=== PATIENT | female | born 1995 | race Two or more races ===

== ENCOUNTER 2024-09-19 19:28 | Emergency (ER) | payer MEDICAID, SELFPAY ==
[2024-09-19 19:30] VITALS: BMI 36.2
[2024-09-19 19:47] VITALS: BP 130/83; PULSE 98; RESP 18; TEMP 37; O2SAT 98
--- NOTE | 2024-09-19 19:49 | PD.EDRME ---
Rapid Medical Screening Exam E Arrival date/time: 09/19/24 19:28 29 yo f present to ED for c/o of right lower leg injury today I have greeted and performed a focused initial assessment of this patient. A comprehensive ED assessment and evaluation of the patient, analysis of all test results, and completion of the medical decision making process will be conducted by additional ED providers. Chief Complaint: Extremity Injury, Lower Vital signs: Vital Signs Temperature 98.6 F 09/19/24 19:47 Pulse Rate 98 09/19/24 19:47 Respiratory Rate 18 09/19/24 19:47 Blood Pressure 130/83 09/19/24 19:47 Pulse Oximetry (%) 98 09/19/24 19:47 Oxygen Delivery Method Room Air 09/19/24 19:47
--- NOTE | 2024-09-19 19:50 | XR_ITS ---
Examination: Tibia-Fibula, right , 2 views Technique: Tibia-fibula AP lateral 2 views Date and time of exam: September 19, 2024 [id number] hrs. Indications: Injury to the leg today, lower leg pain. Findings: No acute fracture No dislocation No foreign body Impression: No acute fracture
--- NOTE | 2024-09-19 19:50 | XR_ITS ---
EXAMINATION: Ankle, right 3 views . Technique: Ankle AP, oblique, lateral 3 views Date and time of exam: September 19, [id number] hrs. Indications: Injury to the ankle today, ankle pain. Findings: No acute fracture No dislocation No foreign body Impression: No acute fracture
--- NOTE | 2024-09-19 19:50 | XR_ITS ---
Examination: Foot, right, 3 views Technique: AP, oblique, lateral views foot, 3 views Date and time of exam: September 19, 2024 2308 hrs. Indications: Injury to the foot today, foot pain Findings: No acute fracture No dislocation No foreign body Impression: No acute fracture
--- NOTE | 2024-09-19 21:04 | EDNOTE_ITS ---
<Statement entered by Kylee Booker MD - 09/20/24 03:22> As co-signing physician, I was present and available for consult prn. I concur with the plan and care as documented by the midlevel provider. Lower Extremity Injury RME/HPI General Chief Complaint: Extremity Injury, Lower Stated Complaint: RIGHT LOWER LEG PAIN S/P FALL Time Seen by Provider: 09/19/24 21:04 Arrival date/time: 09/19/24 19:28 29 year old female present to emergency room with c/o of lower leg injury today. patient report walking down steps when accidentally slipped and fell down a few steps. LOCATION: leg pain SEVERITY: Symptoms are described as being severe with limitations on activities of daily living QUALITY: Symptoms are described as being dull or achy CONTEXT: injury leg while walking down steps DURATION/TIMING: The symptoms started approximately 1 day ago and have been constant this then. ASSOCIATED SYMPTOMS: The patient is unable to identify any other associated symptoms. MODIFYING FACTORS: The patient is unable to identify any alleviating or aggravating symptoms. PERTINENT ROS: no fevers, no headache, no neck or chest pain, no unexplained nausea or vomiting, no focal neurological deficits REVIEW OF SYSTEMS: See History of Present Illness - with the exception of those mentioned in the history of present illness, all other systems reviewed and reported as negative GENERAL: In general the patient is awake, interactive, in an emergency department gurney. HEAD/EYES/EARS/NOSE/THROAT: normo-cephalic, atraumatic, mucus membranes are moist, anicteric, palpebral conjunctiva is pink, trachea is midline. CARDIOVASCULAR: regular rate and regular rhythm, no murmurs, heart sounds are not distant, strong pulses in all four extremities that are equal and symmetric bilateral upper and lower extremities, normal capillary refill. CHEST/PULMONARY: normal chest rise and fall, good air movement, clear to auscultation bilaterally, normal inspiratory to expiratory ratios without evidence of respiratory distress. NECK: No midline/Paraspinal tenderness, no step off ROM/Strenght intact No Kernig and bruzinski sign. No trauma ABDOMEN: soft, not tender, no masses appreciated BACK: normal range of motion without pain. NEUROLOGICAL: cranio-facial features are symmetric, moves all four extremities equally without obvious limitations or weakness. EXTREMITY: right lower leg, ankle and foot tenderness, no open wounds no tenderness to palpation over the long bones or large joints of the bilateral upper extremities, no joint swelling, no unilateral leg swelling and no peripheral edema. SKIN: warm, dry, well-perfused, no jaundice, no rash, no telangiectasias or petechia. PSYCH: calm, cooperative, no evidence of psychosis or agitation RME / HPI RME / HPI Narrative: 09/19/24 19:28 29 yo f present to ED for c/o of right lower leg injury today I have greeted and performed a focused initial assessment of this patient. A comprehensive ED assessment and evaluation of the patient, analysis of all test results, and completion of the medical decision making process will be conducted by additional ED providers. Related Data Home Medications ?Medication ?Instructions ?Recorded ?Confirmed vit no.95-ferrous 1 tab PO QDAY 12/23/19 02/21/20 fumarate 28 mg-folic acid 800 mcg tablet () Previous Rx's ?Medication ?Instructions ?Recorded ibuprofen 600 mg tablet 600 mg PO Q6H PRN pain #90 tabs 02/21/20 acetaminophen 300 mg-codeine 30 mg 1 tab PO Q6H PRN pain #15 tabs 02/26/22 tablet ketorolac 10 mg tablet 10 mg PO Q8H PRN pain #15 tabs 02/26/22 ondansetron 4 mg disintegrating 4 mg PO Q4H PRN nausea and 02/26/22 tablet vomiting #10 tabs tamsulosin 0.4 mg capsule (Flomax) 0.4 mg PO QDAY #7 caps 02/26/22 omeprazole 40 mg capsule,delayed 40 mg PO QDAY #30 caps 03/31/23 release ibuprofen 800 mg tablet 800 mg PO TID PRN pain #30 tabs 08/14/23 loperamide 2 mg capsule (Imodium 2 mg PO Q6H PRN loose stool #14 08/14/23 A-D) caps ondansetron 4 mg disintegrating 4 mg PO Q8H PRN nausea and 08/14/23 tablet vomiting #10 tabs Allergies Allergy/AdvReac Type Severity Reaction Status Date / Time peanut Allergy Mild Rash Verified 09/19/24 19:32 wheat Allergy Unknown THROAT Verified 09/19/24 19:32 FEELS FUNNY Course Course Course Narrative: xray no acute findings rice protocol take tylenol or motrin as need for pain crutches for 1 week/ankle brace follow up with PCP for recheck return to ED if symptoms worsen Quality Measures none Orders Category Date Time Status Crutches .NOW Care 09/19/24 21:05 Active XR ankle comp RT min 3V Stat Exams 09/19/24 19:50 Completed XR foot comp RT min 3V Stat Exams 09/19/24 19:50 Completed XR tibia fibula RT 2V Stat Exams 09/19/24 19:50 Completed Ibuprofen Tab [Motrin Tab] Med 09/19/24 21:05 Discontinued 800 mg PO X1 ONE Vital Signs Vital signs: Vital Signs Temperature 98.6 F 09/19/24 19:47 Pulse Rate 98 09/19/24 19:47 Respiratory Rate 18 09/19/24 19:47 Blood Pressure 130/83 09/19/24 19:47 Pulse Oximetry (%) 98 09/19/24 19:47 Oxygen Delivery Method Room Air 09/19/24 19:47 Extremity Injury, Lower Patient data External records reviewed:: None Clinical information provided by:: patient Social determinants that could affect healthcare access:: none Patient has the following chronic illnesses:: n/a How is presenting disease/condition affected by chronic disease/condition?: no chronic disease Evaluation data The following diagnostics were reviewed and interpreted by me:: other (specify) (n/a ) Lab and/or radiology exams considered but not ordered:: n/a Interpretation Summary: xray: no acute findings Medications / Prescriptions Medications or Prescriptions considered but not ordered:: none Medication administrations:: Medication Administration History Discontinued Medications Ibuprofen (Ibuprofen Tab 400 Mg Tablet) 800 mg PO X1 ONE Stop: 09/19/24 21:06 as stated above Consultations Consultation(s) initiated? (list below): No Diagnosis Most likely diagnosis given after review of the tests above:: leg pain/contusion Admission Indicated Admission indicated?: not indicated Admission Request Was there a request for admission?: No Disposition Plan Disposition Plan: Discharge Discharge Attestation Discharge Attestation: The patient and all family members were given an opportunity to ask questions and understood the discharge instructions. Discharge instructions specifically effects, indications for sooner follow up or return to the emergency department, and the expected course of current diagnosis. Patient condition: Stable Discharge Plan Plan Patient Disposition: HOME (Self Care) Health Concerns: Follow with PMD as directed Take tylenol or motrin as need Return to ED if sx worsen Prescriptions/Referrals Prescriptions/Med Rec: No Action PNV cmb#95-ferrous fumarate-FA [] 28 mg iron- 800 mcg Tablet 1 tab PO QDAY ibuprofen 600 mg tablet 600 mg PO Q6H MDD 5 PRN (Reason: pain) Qty: 90 0RF ketorolac 10 mg tablet 10 mg PO Q8H PRN (Reason: pain) Qty: 15 0RF ondansetron 4 mg tablet,disintegrating 4 mg PO Q4H PRN (Reason: nausea and vomiting) Qty: 10 0RF acetaminophen-codeine 300-30 mg tablet 1 tab PO Q6H PRN (Reason: pain) Qty: 15 0RF tamsulosin [Flomax] 0.4 mg capsule 0.4 mg PO QDAY Qty: 7 0RF omeprazole 40 mg capsule,delayed release(DR/EC) 40 mg PO QDAY Qty: 30 0RF loperamide [Imodium A-D] 2 mg capsule 2 mg PO Q6H PRN (Reason: loose stool) Qty: 14 0RF ibuprofen 800 mg tablet 800 mg PO TID PRN (Reason: pain) Qty: 30 0RF ondansetron 4 mg tablet,disintegrating 4 mg PO Q8H PRN (Reason: nausea and vomiting) Qty: 10 0RF Problem List Clinical Impression: Contusion of leg, right Patient/Caregiver Discharge Instructions Education Materials: ED Contusion, Lower Extremity Print Language: Faroese Stand Alone Forms: Susana Award Info., Patient Portal Info Letter
[2024-09-19] MEDS: IBUPROFEN TAB 400 MG TABLET 800 MG PO (21:16)
== END 2024-09-19 21:23 | disposition home or self-care (01) ==
PROVIDERS: Emergency Provider Emergency Medicine; PCP Family Medicine
DX: S80.11XA Contusion of right lower leg, initial encounter (principal); S99.911A Unspecified injury of right ankle, initial encounter; S99.921A Unspecified injury of right foot, initial encounter; W10.9XXA Fall (on) (from) unspecified stairs and steps, initial encounter; Y93.01 Activity, walking, marching and hiking
CPT/HCPCS: 73590; 73610; 73630; 99283; A9270

== ENCOUNTER 2025-08-23 19:53 | Emergency (ER) | payer MEDICAID, SELFPAY ==
[2025-08-23 19:54] VITALS: BMI 37.1
[2025-08-23 20:33] VITALS: PULSE 115; RESP 20; TEMP 39; O2SAT 95
--- NOTE | 2025-08-23 20:52 | XR_ITS ---
EXAMINATION: PA chest single view TECHNIQUE: Upright PA chest single view Date and time: August 23, 2025, 2057 hours INDICATION: Chest pain shortness of breath beginning 4 days ago. FINDINGS: Normal heart size Lungs are clear. Intact osseous structures IMPRESSION: No active disease
--- NOTE | 2025-08-23 20:53 | PD.EDRME ---
Rapid Medical Screening Exam RME Arrival date/time: 08/23/25 19:53 This is a case of 30-year-old female with no medical history came in in the emergency room due to fever chills cough headache for 3 days worsening of the symptoms this patient decided to sought consult here in the emergency room Chief Complaint: Flu Like Symptoms Time Seen by Provider: 08/23/25 20:21 Vital signs: Vital Signs Temperature 102.2 F H 08/23/25 20:33 Pulse Rate 115 H 08/23/25 20:33 Respiratory Rate 20 08/23/25 20:33 Pulse Oximetry (%) 95 08/23/25 20:33 Oxygen Delivery Method Room Air 08/23/25 20:33 Exam: Clear breath sounds no crackles no rales no retraction no stridor Clinical Impression: Fever
[2025-08-23 21:18] LABS: Lactate (Lactic Acid) 1.5 mMol/L (0.4-2.0)
[2025-08-23 21:20] LABS: Basophils # (Auto) 0.1 Thou/mm3 (0.0-0.2); Basophils % (Auto) 1 % (0-2.5); Eosinophils # (Auto) 0.0 Thou/mm3 (0.0-0.5); Eosinophils % (Auto) 0 % (0-10); Hematocrit 40.5 % (36.0-46.0); Hemoglobin 12.2 g/dL (12.0-16.0); Immature Granulocytes Auto 0.02 Thou/mm3 (0.00-0.00); Lymphocytes # (Auto) 0.7 Thou/mm3 (1.0-4.8); Lymphocytes % (Auto) 11 % (10-50); Mean Corpuscular HGB Conc 30.1 g/dl (31.0-37.0); Mean Corpuscular Hemoglobin 20.5 pg (25.0-35.0); Mean Corpuscular Volume 68 fL (80-100); Monocytes # (Auto) 0.8 Thou/mm3 (0.0-0.8); Monocytes % (Auto) 13 % (0-12); Neutrophils # (Auto) 5.0 Thou/mm3 (1.8-7.7); Neutrophils % (Auto) 75 % (37-80); Nucleated Red Blood Cell # 0.00 Thou/mm3 (0.00-0.00); Nucleated Red Blood Cell % 0 /100 WBC (0); Platelet Count 265 Thou/mm3 (140-440); RDW Standard Deviation 42.4 fL (36.4-46.3); Red Blood Count 5.95 Miln/mm3 (4.00-5.20); White Blood Count 6.7 Thou/mm3 (3.6-11.0)
[2025-08-23 21:36] LABS: Alanine Aminotransferase 25 U/L (10-49); Albumin, Serum 4.9 gm/dL (3.5-5.0); Albumin/Globulin Ratio 1.3 (1.2-2.2); Alkaline Phosphatase 112 U/L (46-116); Anion Gap 10 (7-16); Aspartate Amino Transferase 25 U/L (0-34); BUN/Creatinine Ratio 9 Ratio (12-20); Bilirubin,Total 0.2 mg/dL (0.3-1.2); Blood Urea Nitrogen 9 mg/dL (9-23); Calcium 9.1 mg/dL (8.3-10.6); Calcium (Corrected) 9.1 mg/dL (8.5-10.1); Carbon Dioxide 26.7 mMol/L (20.0-31.0); Chloride 104 mMol/L (98-107); Creatinine (Component) 1.0 mg/dL (0.6-1.3); Estimated Creatinine Clearance 88.4 mL/min (>60); Globulin 3.7 gm/dL (2.3-3.5); Glucose 109 mg/dL (74-106); Osmolality,Calculated 280 (275-295); Potassium 3.9 mMol/L (3.4-5.1); Sodium 141 mMol/L (136-145); Total Protein 8.6 gm/dL (5.7-8.2); eGFR > 60 See Note
[2025-08-23] MEDS: SODIUM CHLORIDE 0.9% 1000 ML 1,000 ML 1800 ML IV (21:44)
[2025-08-23] MEDS: IBUPROFEN TAB 400 MG TABLET 800 MG PO (21:44)
[2025-08-23 22:54] LABS: Collection Type, Urine Voided
[2025-08-23 23:01] LABS: HCG Qualitative,Urine Negative
[2025-08-23 23:10] VITALS: BP 106/64; PULSE 92; RESP 16; TEMP 37.3; O2SAT 98
[2025-08-23 23:17] LABS: Amorphous Crystals,Urine Present (Absent); Bacteria,Urine Rare; Hyaline Casts,Urine < 1 /hpf (0-1); RBC,Urine 31 /hpf (0-3); Squamous Epithelial Cell,Urine 15 /hpf (0-5); WBC,Urine 1 /hpf (0-5)
[2025-08-23 23:19] LABS: Bilirubin,Urine Negative (Negative); Blood,Urine 1+ (Negative); Clarity,Urine Clear (Clear/Hazy); Color,Urine Lt Yellow (Lt Yel-Yel); Glucose, Urine Negative (Negative); Ketones,Urine Negative (Negative); Leukocyte Esterase,Urine Negative (Negative); Nitrite,Urine Negative (Negative); PH,Urine 7.5 (5.0-7.0); Protein,Urine 1+ (Neg - Trace); Specific Gravity,Urine 1.015 (1.001-1.035); Urobilinogen,Urine 1.0 mg/dL (0.0-1.0)
[2025-08-23 23:44] VITALS: TEMP 36.6
--- NOTE | 2025-08-24 00:19 | EDNOTE_ITS ---
Upper Respiratory Inf. RME/HPI General Chief Complaint: Flu Like Symptoms Stated Complaint: HEADACHE,COUGH,CHILLS Time Seen by Provider: 08/23/25 20:21 Arrival date/time: 08/23/25 19:53 RME / HPI RME / HPI Narrative: 30-year-old female with no significant past medical history presents to ED with cough, and generalized body aches. Symptoms started 2 days ago where she has been having dry cough, some chills and bodyaches. She lives with her with a school-aged son who has been sick over the last week with similar symptoms. Denies fever, severe/worsening headache, chest pain, sob, productive cough, GI or urinary symptoms. Initially she was slightly tachycardic and had a fever of 102.2. She was given a liter of fluid with resolution of tachycardia. Oxygen saturation in upper 90s on room air. BP WNL. On exam she appeared normal without acute distress, lung sounds are clear bilaterally. CBC and CMP were unremarkable. UA was negative for UTI. CXR showed no acute disease. Overall she appears stable and states her symptoms have been improving since this morning. She had influenza A positive test. Given that her symptoms started more than 24 hours ago and are relatively mild, discussed options for TAMIFLU which have shown minimal benefits after 24 hours. She agrees agrees that there is no indication of TAMIFLU at this point. I recommended [id number] TYLENOL as needed for fever and pain. Return to the ED if her symptoms persist, worsen, or new symptoms develop. Exam: Clear breath sounds no crackles no rales no retraction no stridor Impression: Fever Related Data Home Medications ?Medication ?Instructions ?Recorded ?Confirmed vit no.95-ferrous 1 tab PO QDAY 12/23/1901/25 fumarate 28 mg-folic acid 800 mcg tablet () Previous Rx's ?Medication ?Instructions ?Recorded ibuprofen 600 mg tablet 600 mg PO Q6H PRN pain #90 t abs 02/21/20 acetaminophen 300 mg-codeine 30 mg 1 tab PO Q6H PRN pa in #15 tabs 02/26/22 tablet ketorolac 10 mg tablet 10 mg PO Q8H PRN pain #15 ta bs 02/26/22 ondansetron 4 mg disintegrating 4 mg PO Q4H PRN nausea and 02/26/22 tablet vomiting #10 tabs tamsulosin 0.4 mg capsule (Flomax) 0.4 mg PO QDAY #7 c aps 02/26/22 omeprazole 40 mg capsule,delayed 40 mg PO QDAY #30 cap s 03/31/23 release ibuprofen 800 mg tablet 800 mg PO TID PRN pain #30 t abs 08/14/23 loperamide 2 mg capsule (Imodium 2 mg PO Q6H PRN loose stool #14 08/14/23 A-D) caps ondansetron 4 mg disintegrating 4 mg PO Q8H PRN nausea and 08/14/23 tablet vomiting #10 tabs acetaminophen 500 mg capsule 500 mg PO Q6H PRN fever o r pain 08/24/25 #30 caps Allergies Allergy/AdvReac Type Severity Reaction Status Date / Time peanut Allergy Mild Rash Verified 08/23/25 19:54 wheat Allergy Unknown THROAT Verified 08/23/25 19:54 FEELS FUNNY ED Exam Narrative Physical exam: GENERAL * Normal appearing female in no apparent distress. Satting well on room air. HEENT * NCAT.?CHARLENE. Oral mucosa is moist. Patent Nares NECK * Supple, nontender, no JVD. CHEST * RRR, no m/g/r * CTAB, no w/r/r, symmetrical expansion. ABDOMEN * Soft, flat, nontender. No guarding/rebound tenderness/masses. * Bowel sounds presents EXTREMITIES * No edema/cyanosis.? SKIN * Warm and dry, no jaundice/rashes. NEUROMUSCULAR * No lumbar or midline, no CVA, no paraspinal muscle spasm or tenderness. * Moves all 4 extremities well, with full ROM and good CSM. * PASTRANA x4, CN II-XII grossly intact. * No focal neurologic deficits. PSYCHIATRY * Normal mood and affect, cooperative, no SI or HI or hallucinations. Course Quality Measures none Orders Category Date Time Status Bedside COVID-19 Antigen Test NOW Care 08/23/25 20:52 Active Bedside Influenza A&B Antigen Test NOW Care 08/23/25 20:53 Completed XR chest 1V Stat Exams 08/23/25 20:52 Completed Blood Culture (Lab) Stat Lab 08/23/25 21:08 Received CBC Stat Lab 08/23/25 21:05 Completed CMP [Comprehensive Metabolic Panel] Stat Lab 08/23/25 21:05 Completed HCG Qualitative,Urine Stat Lab 08/23/25 22:43 Completed Lactic Acid [Lactate (Lactic Acid)] Stat Lab 08/23/25 21:05 Completed Urinalysis Stat Lab 08/23/25 22:43 Completed Ibuprofen Tab [Motrin Tab] Med 08/23/25 20:52 Discontinued 800 mg PO X1 ONE Sodium Chloride 0.9% 1000 ml [Ns] 1,000 ml Med 08/23/25 20:53 Discontinued IV 1,800 mls/hr Vital Signs Vital signs: Vital Signs Temperature 102.2 F H 08/23/25 20:33 Pulse Rate 115 H 08/23/25 20:33 Respiratory Rate 20 08/23/25 20:33 Pulse Oximetry (%) 95 08/23/25 20:33 Oxygen Delivery Method Room Air 08/23/25 20:33 Upper Respiratory Infection Patient data External records reviewed:: [facility] previous records Clinical information provided by:: patient Social determinants that could affect healthcare access:: housing Patient has the following chronic illnesses:: N/A How is presenting disease/condition affected by chronic disease/condition?: uneffected by Evaluation data The following diagnostics were reviewed and interpreted by me:: lab results and radiology exam(s) Lab and/or radiology exams considered but not ordered:: None Interpretation Summary: None Medications / Prescriptions Medications or Prescriptions considered but not ordered:: None Medication administrations:: Medication Administration History Discontinued Medications Sodium Chloride (Ns) 1,000 mls @ 1,800 mls/hr IV .Q34M ONE Stop: 08/23/25 21:26 Last Admin: 08/23/25 21:44 Dose: 1,800 mls/hr Documented By: LIZ Ibuprofen (Ibuprofen Tab 400 Mg Tablet) 800 mg PO X1 ONE Stop: 08/23/25 20:53 Last Admin: 08/23/25 21:44 Dose: 800 mg Documented By: LIZ N/A Consultations Consultation(s) initiated? (list below): Yes Diagnosis Upper Respiratory Differential Diagnosis: upper respiratory infection Most likely diagnosis given after review of the tests above:: Influenza A Admission Indicated Admission indicated?: not indicated Admission Request Was there a request for admission?: No Disposition Plan Disposition Plan: Discharge Discharge Attestation Discharge Attestation: The patient and all family members were given an opportunity to ask questions and understood the discharge instructions. Discharge instructions specifically effects, indications for sooner follow up or return to the emergency department, and the expected course of current diagnosis. Patient condition: Stable Discharge Plan Plan Patient Disposition: HOME (Self Care) Patient condition on transfer: Stable Prescriptions/Referrals Prescriptions/Med Rec: New acetaminophen 500 mg capsule 500 mg PO Q6H PRN (Reason: fever or pain) Qty: 30 0RF Rx Instructions: Do not exceed more than 4 tablets per one day Continued PNV no.95-ferrous fumarate-FA [] 28 mg iron- 800 mcg Tablet 1 tab PO QDAY ibuprofen 600 mg tablet 600 mg PO Q6H MDD 5 PRN (Reason: pain) Qty: 90 0RF ketorolac 10 mg tablet 10 mg PO Q8H PRN (Reason: pain) Qty: 15 0RF ondansetron 4 mg tablet,disintegrating 4 mg PO Q4H PRN (Reason: nausea and vomiting) Qty: 10 0RF acetaminophen-codeine 300-30 mg tablet 1 tab PO Q6H PRN (Reason: pain) Qty: 15 0RF tamsulosin [Flomax] 0.4 mg capsule 0.4 mg PO QDAY Qty: 7 0RF omeprazole 40 mg capsule,delayed release(DR/EC) 40 mg PO QDAY Qty: 30 0RF loperamide [Imodium A-D] 2 mg capsule 2 mg PO Q6H PRN (Reason: loose stool) Qty: 14 0RF ibuprofen 800 mg tablet 800 mg PO TID PRN (Reason: pain) Qty: 30 0RF ondansetron 4 mg tablet,disintegrating 4 mg PO Q8H PRN (Reason: nausea and vomiting) Qty: 10 0RF Referrals: Emerson Bartholomew MD [Primary Care Provider, Family Practice] - In 1 week Problem List Clinical Impression: Influenza A Patient/Caregiver Discharge Instructions Print Language: Hong Konger Stand Alone Forms: Susana Award Info., Patient Portal Info Letter
[2025-08-24 05:07] LABS: Path Review Blood Smear Sent to Pathologist
== END 2025-08-24 00:42 | disposition home or self-care (01) ==
PROVIDERS: Emergency Provider Nurse Practitioner Family; PCP Family Medicine
DX: J10.1 Influenza due to other identified influenza virus with other respiratory manifestations (principal)
CPT/HCPCS: 36415; 71045; 80053; 81001; 81025; 83605; 85025; 87040; 87077; 87186; 87502; 87635; 96360; 96361; 99283; J7030; A9270